=== PATIENT | male | born 1970 | race Two or more races ===

== ENCOUNTER 2024-08-01 10:32 | Emergency (ER) | payer OTHER ==
[~2024-08-01] VITALS: Ht 180.3 cm; Wt 103.0 kg
[2024-08-01] MEDS ORDERED: COZAAR50 MG (10:42)
[2024-08-01] MEDS ORDERED: DICLOFENAC SODI75 MG PO (12:27)
== END 2024-08-01 12:49 | disposition home or self-care (01) ==
LOC: ER 10:34
DX: R07.89 Other chest pain (principal); M54.89 Other dorsalgia; I10 Essential (primary) hypertension; Z85.850 Personal history of malignant neoplasm of thyroid